=== PATIENT | male | born 1955 | race Caucasian/White ===

== ENCOUNTER → 2017-03-28 | Outpatient (CLI) | payer OTHER | LOC: RAD 15:31 | PROVIDERS: ATTEND Specialist | DX: M17.0 Bilateral primary osteoarthritis of knee (principal) | CPT/HCPCS: 36415; 85652; 86140 ==

== ENCOUNTER → 2017-04-20 | Outpatient (CLI) | payer OTHER ==
--- NOTE | 2017-04-20 13:31 | NM ---
BONE SCAN CLINICAL INDICATION: Bilateral knee pain PROCEDURE: Approximately 2-4 hours following intravenous administration of 25.3 mCi of [id number], whole body delayed planar images were obtained from the anterior and posterior projections. COMPARISON: None FINDINGS: There is normal by distribution of the radiotracer within the axial and appendicular skeleton. Foca l uptake can be seen in the left superior pubic ramus and left ankle. Periprosthetic uptake in the r ight knee and degenerative uptake in the left knee. There is normal by distribution of the radiotracer within the genitourinary system and soft tissues. IMPRESSION: 1. Focal uptake in the left superior pubic ramus. Bone scan is an inherently nonspecific examinatio n and therefore this could represent either subacute to chronic trauma or malignancy. 2. Degenerate uptake involving the ankle on the left as well as the knees. Periprosthetic uptake wit hin the right knee. Reported By:
--- NOTE | 2017-04-24 18:29 | CT ---
CT SCANOGRAM CLINICAL INDICATION: OSTEOARTHRITIS OF THE KNEES PROCEDURE: PA and lateral CT publications distribution clerk images of the lower extremities were obtained. COMPARISON: None. FINDINGS/IMPRESSION: This examination has no diagnostic value in evaluation of osteoarthritis of th e knees. Patient has a right knee prosthesis. Standard three view x-ray of the knees would be recomm ended. Reported By:
== END ==
LOC: RAD 08:56
PROVIDERS: ATTEND Specialist
DX: M17.0 Bilateral primary osteoarthritis of knee (principal)
CPT/HCPCS: 77073; 78306; A4222